=== PATIENT | male | born 1985 | race Caucasian/White ===

== ENCOUNTER 2018-05-09 12:00 | Emergency (ER) | payer SELFPAY ==
[2018-05-09] MEDS ORDERED: Cephalexin 500 MG Cap PO ONE (12:28)
[2018-05-09] MEDS ORDERED: Lidocaine 1% 10 ML MDV INJECT ONE (12:28)
[2018-05-09] MEDS ORDERED: Diphtheria,Pertussis(Acell),Tetanus Vaccine 0.5 ML SDV IM ONE (12:30)
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
== END 2018-05-09 13:00 | disposition home or self-care (01) ==
LOC: JD.ED 12:00
DX: S81.012A Laceration without foreign body, left knee, initial encounter (principal); Z23 Encounter for immunization; W26.8XXA Contact with other sharp object(s), not elsewhere classified, initial encounter
CPT/HCPCS: 12002; 90471; 90715; 99283; A9270